=== PATIENT | female | born 1970 | race Caucasian/White ===

== ENCOUNTER 2018-06-22 05:00 | Emergency (ER) | payer OTHER ==
[2018-06-22 05:29] VITALS: O2SAT 100
--- NOTE | 2018-06-22 05:58 | RAD ---
EXAM: One view(s) of the abdomen. INDICATION: Abdominal pain, acute. COMPARISON: None. FINDINGS: Bowel: No dilated loops of small bowel or air-fluid levels. Gaseous distention of the stomach is noted Bones: Unremarkable. Other: None. IMPRESSION: 1. Nonspecific, nonobstructed bowel gas pattern. Electronically signed by: Maulik Nogueira MD 06/22/2018 5:57 AM [facility] [employer] Workstation: [id number]
--- NOTE | 2018-06-22 05:58 | RAD ---
EXAM: Single view chest. INDICATION: Unresponsive. COMPARISON: Chest x-ray: None. FINDINGS: Patient is rotated towards the left. A retrocardiac airspace opacity is present. The heart size is accentuated by patient positioning. There is no pneumothorax. A left pleural effusion may be present. Median sternotomy wires are noted. A tracheostomy tube is partially visualized. IMPRESSION: Retrocardiac airspace opacity Electronically signed by: Maulik Nogueira MD 06/22/2018 5:56 AM [employer] Workstation: [id number]
[2018-06-22] MEDS ORDERED: HEPARIN SODIUM 100 U/ML 5 ML SYG IV ONE (06:38)
--- NOTE | 2018-06-22 06:47 | ED.PDOC ---
History of Present Illness - General Chief Complaint: Neuro Symptoms/Deficits Stated Complaint: altered mental status Time Seen by Provider: 06/22/18 05:19 Source: patient, EMS notes reviewed, [facility] records Exam Limitations: no limitations - History of Present Illness Initial Comments: the patient is a 48-year-old female sent from [facility]. The patient is a chronic ventilator dependent patient. The patient's last known normal was around 6 or 7 PM last night. Apparently the patient has some significant decrease staying thin near paralysis on the right side from the previous stroke. She has not really normally able to communicate but does normally track with her eyes and does pull at her tubes and move the left lower extremity fairly well. I see no history of any seizure disorder on her records but she does take Keppra. The patient has had an aortic valve replacement and is on Coumadin. She has had a previous ischemic stroke as well. The patient is not tracking currently. She does not withdraw to pain. She has occasional clonic movements of the left upper and left lower extremity. She has no movement and no withdrawal of pain to the right lower extremity. After 2 mg of Ativan IM the patient does have some extension startle response to being poked for an IV and actually all 4 extremities. She has no purposeful tracking. She withdraws a little bit in the left upper extremity. This is apparently still far from baseline. The patient has absolutely no peripheral ACCESS. Procedure note for central line placement: Consent was implied as the patient is unable to consent at this time and this is an emergency. Vascular ultrasound was performed of bilateral femoral veins in both veins lying directly behind the arteries.then attention was turned to the right subclavian. One attempt was made at passing the needle after sterile prep and drape underneath the right clavicle after some maneuvering no blood has been obtained. Due to the fact that the patient is on Coumadin and this is not a very well compressible site, attention was turned to the right internal jugular. Sterile prep and drape was again performed. Ultrasound was used for direct visualization and even under ultrasound visualization this took 2 passes to get an adequate flow from the right internal jugular. Catheter is advanced to 15 cm at the skin. P ostplacement x-ray has been done. Labs have been sent. Timing/Duration: unsure Severity: severe Allergies/Adverse Reactions: Allergies NO KNOWN ALLERGY Allergy (Verified 06/22/18 05:17) Home Medications: Ambulatory Orders Amiodarone HCl 200 mg PO BID 06/22/18 Atorvastatin Calcium [Lipitor] 20 mg PO DAILY 06/22/18 Famotidine 20 mg PO DAILY 06/22/18 Insulin Glargine 100U/ml [Lantus] 40 unit SUBCU BID 06/22/18 Insulin Lispro (Human) [Humalog] 06/22/18 Metoprolol Tartrate 50 mg PO BID 06/22/18 Warfarin Sodium 4 mg PO DAILY 06/22/18 levETIRAcetam SUSPENSION [Keppra] 500 mg PO BID 06/22/18 Review of Systems - Review of Systems Review of Systems: 06/22/18 06:47 the patient is unable to give a review of systems. Past Medical History (General) - Patient Medical History Hx Stroke: Yes Hx Hypertension: Yes Hx Diabetes: Yes - Vaccination History Hx Influenza Vaccination: Yes Hx Pneumococcal Vaccination: Yes - Activities of Daily Living Shelter/Assisted Living (if applicable):: [facility] Family Medical History - Family History Father Family History: Unknown Physical Exam - Physical Exam General Appearance: Lethargic, Other - the patient was initially unresponsive. No withdrawal to pain. After a while she is getting some withdrawal to pain to the left upper extremity and a startle response in all 4 extremities Eye Exam: bilateral other - withattempted IV access. Pupils are approximately 3 mm and minimally reactive. She is not tracking. Blink reflex is present. No obvious significant nystagmus. Ears, Nose, Throat: normal pharynx, other - the patient does swallow sponta neously. Neck: non-tender, supple, other - tracheostomy is in place. IJ is placed in the right side. Respiratory: lungs clear, normal breath sounds, no respiratory distress, no accessory muscle use Cardiovascular/Chest: normal peripheral pulses, no edema - sternotomy scar from apparent aortic valve surgery is present., other - regular rate Peripheral Pulses: radial,right: 2+, radial,left: 2+, dorsalis pedis,right: 2+, dorsalis pedis,left: 2+ Gastrointestinal/Abdominal: non tender, soft, other - obese. Surgical changes are present. Rectal Exam: deferred Back Exam: no vertebral tenderness Extremity: normal range of motion - passive, non-tender, no pedal edema, normal capillary refill Neurologic: other - see history of present illness. DTR: 1+: Biceps, right, 2+: Biceps, left, Patellar, left, Patellar, right Skin Exam: normal color Comments: Vital Signs - 24 hr 06/22/18 06/22/18 05:00 05:09 Temperature 99.4 F Pulse Rate [ 72 Left] Respiratory 14 Rate Respiratory 14 Rate [Volume Control Data] Blood Pressure 185/95 [Right Radial Artery] O2 Sat by Pulse 100 Oximetry Progress - Progress Progress: 06/22/18 06:50 the patient a 48-year-old female presenting to the emergency room secondary to altered mental status. The patient is essentially lethargic upon arrival. She is having a few more spontaneous type movements after the Ativan. The patient is on Coumadin. Laboratory work has been sent. We're going to go ahead and send the patient to [facility] for a head CT as both ischemic and hemorrhagic strokes are possible as she has had a ischemic stroke in the past and hemorrhagic stroke is possible with Coumadin. Laboratory work will be forwarded once resulted. Unfortunately there has been a delay in her transfer secondary to a very difficult IV access. The patient is not likely a lytic candidate due to the Coumadin use. Again INR is being obtained. Transferring for higher level of care. Acceptance is appreciated. Head CT is unable to be obtained at this facility secondary to difficulties with the equipment at this time. it is certainly possible that the patient is having silent seizures as well. Neurology consultation may prove beneficial otherwise. - Results/Orders Results/Orders: Laboratory Tests 06/22/18 05:30 POC Glucose 192 H chest x-ray shows no acute obvious pathology. KUB shows no acute obvious pathology. Departure - Departure Clinical Impression: Altered mental state Qualifiers: Altered mental status type: unspecified Qualified Code(s): R41.82 - Altered mental status, unspecified Disposition: Transfer to Hospital Condition: Poor Departure Forms: ED Discharge - Pt. Copy, Patient Portal Self Enrollment Home Medications: Ambulatory Orders Amiodarone HCl 200 mg PO BID 06/22/18 Atorvastatin Calcium [Lipitor] 20 mg PO DAILY 06/22/18 Famotidine 20 mg PO DAILY 06/22/18 Insulin Glargine 100U/ml [Lantus] 40 unit SUBCU BID 06/22/18 Insulin Lispro (Human) [Humalog] 06/22/18 Metoprolol Tartrate 50 mg PO BID 06/22/18 Warfarin Sodium 4 mg PO DAILY 06/22/18 levETIRAcetam SUSPENSION [Keppra] 500 mg PO BID 06/22/18 Transfer to Outside Facility - Transfer Information Accepting Provider:: dr barbra lópez Accepting Facility: [facility] Reason for Transfer: required specialist not available
[2018-06-22 06:58] VITALS: TEMP 98.4
--- NOTE | 2018-06-22 07:07 | RAD ---
EXAM: Single view chest. INDICATION: Central line placement. COMPARISON: Chest x-ray: 06/22/2018 at 5:38 AM. FINDINGS: The right IJ line terminates within the SVC. There are right basilar interstitial opacities. The heart size is stable. There is no pneumothorax or large pleural effusion. The tracheostomy tube is again noted. Median sternotomy wires are noted. IMPRESSION: Satisfactory position of the right IJ central line Electronically signed by: Maulik Nogueira MD 06/22/2018 7:06 AM [facility] Workstation: [id number]
[2018-06-22 07:08] VITALS: BP 197/145
== END 2018-06-22 07:25 | disposition short-term general hospital (02) ==
LOC: ER 05:00
DX: R41.82 Altered mental status, unspecified (principal); I44.7 Left bundle-branch block, unspecified; I10 Essential (primary) hypertension; E11.9 Type 2 diabetes mellitus without complications; Z79.01 Long term (current) use of anticoagulants; Z95.2 Presence of prosthetic heart valve; Z86.73 Personal history of transient ischemic attack (TIA), and cerebral infarction without residual deficits; Z99.11 Dependence on respirator [ventilator] status; Z79.899 Other long term (current) drug therapy; Z79.4 Long term (current) use of insulin
CPT/HCPCS: 36415; 71045; 74018; 80053; 82550; 82553; 82948; 83605; 83735; 83880; 84484; 84703; 85025; 85379; 87502; 93005; 94002; J1642; J2060